=== PATIENT | female | born 1945 | race Caucasian/White ===

== ENCOUNTER → 2017-08-15 | Outpatient (CLI) | payer MEDICARE, BC, OTHER | LOC: M.CT 11:11 | DX: R91.1 Solitary pulmonary nodule (principal) ==

== ENCOUNTER 2018-12-10 07:21 | Emergency (ER) | payer MEDICARE, BC, OTHER ==
[~2018-12-10] VITALS: Ht 167.6 cm; Wt 61.2 kg
[2018-12-10] MEDS ORDERED: CHOLESTEROL (07:36)
[2018-12-10] MEDS ORDERED: FLEXERIL PO (07:50)
[2018-12-10] MEDS ORDERED: NORCO 5-325 TA1 EAC1 PO (07:50)
[2018-12-10 08:09] VITALS: BP 136/81
== END 2018-12-10 08:10 | disposition home or self-care (01) ==
LOC: M.ERS 07:21
DX: M43.6 Torticollis (principal)

== ENCOUNTER → 2018-12-18 | Outpatient (CLI) | payer MEDICARE, BC, OTHER ==
[~2018-12-18] MED LIST: CHOLESTEROL; FLEXERIL PO; NORCO 5-325 TA1 EAC1 PO
== END ==
LOC: M.MRI 08:30
DX: M47.812 Spondylosis without myelopathy or radiculopathy, cervical region (principal); M50.80 Other cervical disc disorders, unspecified cervical region; M48.02 Spinal stenosis, cervical region; M48.03 Spinal stenosis, cervicothoracic region

== ENCOUNTER → 2019-01-29 | Outpatient (CLI) | payer MEDICARE, BC, OTHER ==
[~2019-01-29] MED LIST changes: +ASA81BEC PO; +ATIVAN1 M1 PO; +CALCIUM CARBON600 MG PO; +COENZYME Q10100 MG PO; +ELIQUIS5 MG PO; +FLONASE 0.05%50 MCG NARES; +FOLVITE PO; +LIPITOR20 MG PO; +MELOXICAM15 MG PO; +MIRALAX119 GM PO; +MULTI-VITAMIN1 EAC5 PO; +OMEGA 3 1,0001 EACH PO; +PACERONE 200 M200 M1 PO; +VITAMIN D31000 UNIT PO; +ZANAFLEX2 M1 PO; +ZYRTEC10 M5 PO
== END ==
LOC: M.PC 04:54
DX: M47.812 Spondylosis without myelopathy or radiculopathy, cervical region (principal); M48.02 Spinal stenosis, cervical region; M50.321 Other cervical disc degeneration at C4-C5 level

== ENCOUNTER → 2019-02-05 | Outpatient (CLI) | payer MEDICARE, BC, OTHER | END | disposition home or self-care (01) | LOC: M.PC 01:12 | DX: M54.2 Cervicalgia (principal); M54.12 Radiculopathy, cervical region; I48.91 Unspecified atrial fibrillation; Z98.890 Other specified postprocedural states; Z79.01 Long term (current) use of anticoagulants; Z79.899 Other long term (current) drug therapy ==

== ENCOUNTER 2019-02-06 17:50 | Inpatient (IN) | payer MEDICARE, BC, OTHER ==
[~2019-02-06] VITALS: Ht 160 cm; Wt 50.8 kg
[~2019-02-06 17:50] MED LIST changes: -ELIQUIS5 MG PO; -PACERONE 200 M200 M1 PO
[2019-02-06 17:56] VITALS: BP 157/106
[2019-02-06 18:18] LABS: HEMATOCRIT 45.6 % (37.0-47.0); HEMOGLOBIN 15.7 gm/dL (12.0-15.0); MCH 31.8 pg (26.0-34.0); MCHC 34.4 g/dL (28.0-37.0); MCV 92.6 fL (80.0-100.0); MPV 8.3 fl. (7.2-11.1); NUCLEATED RBCS 0 /100WBC; PLATELET COUNT* 307 thou/uL (150-400); RBC 4.92 mil/uL (4.20-5.00); RDW-CV 13.7 % (10.5-14.5); WBC 15.3 thou/uL (4.0-11.0)
[2019-02-06 18:29] LABS: CALCIUM 9.8 mg/dL (8.5-10.1); CREATININE 1.1 mg/dL (0.6-1.3); POTASSIUM 3.8 mmol/L (3.5-5.1)
[2019-02-06 18:30] LABS: PROTIME 10.4 Seconds (9.20-11.50)
[2019-02-06 18:41] LABS: ALBUMIN 4.3 g/dL (3.4-5.0); MAGNESIUM 2.3 mg/dL (1.8-2.4); TOTAL BILIRUBIN 0.7 mg/dL (<0.1-1.0); TOTAL PROTEIN 8.1 g/dL (6.4-8.2)
[2019-02-06 18:48] LABS: ABSOLUTE LYMPHOCYTES 2.4 thou/uL (0.8-5.3); ABSOLUTE MONOCYTES 1.5 thou/uL (0.0-1.2); ABSOLUTE NEUTROPHILS 11.3 thou/uL (1.6-8.1); PLATELET ESTIMATE ADEQUATE
--- NOTE | 2019-02-06 21:35 | NUR ---
HEART RATE DECREASED TO LOW 40'S. PT HAS CONVERTED TO SR. DR BERNABE NOTIFIED AND CARDIZEM DRIP STOPPED AT THIS TIME.
[2019-02-06 21:36] VITALS: BP 106/52
[2019-02-07] VITALS (8 sets, daily range): BP systolic 104–140; BP diastolic 51–79
--- NOTE | 2019-02-07 08:36 | NUR ---
PT ORIENTED TO ROOMAND UNIT. BED LOW AND LOCKED, SIDE RAILS UPX3 CALL LIGHT IN REACH. TELE APPLIED AND ALL DOCUMENTS SIGHNED. INFORMED CARDIOLOGY THAT PT IS IN ROOM 232. WILL CONTINUE TO ASSESS.
--- NOTE | 2019-02-07 12:32 | NUR ---
MET WITH PT TO DISCUSS HOME SITUATION/DC PLANNING. PT LIVES WITH SPOUSE. SHE IS INDEPENDENT AND ACTIVE. USES NO EQUIPMENT. HASN'T HAD HH OR BEEN TO SNF. PLANS TO RETURN HOME AT DC. DISCUSSED POC AND GAVE WRITTEN INFO ON AMIODARONE AND ELIQUIS PER REQUEST. WILL FOLLOW
--- NOTE | 2019-02-07 14:25 | EKG ---
[place] [address] ELECTROCARDIOGRAM REPORT Name: ALLAN BOYD Room: [address] ADM IN M.R.#: [id number] Admission: 02/06/19 Attend Phys: Arnold Taylor Discharge: Date of : 41 Report #: [id number] THIS REPORT FOR: //name// [facility] ED Test Date: 2019-02-06 Test Time: 17:54:10 Pat Name: ALLAN BOYD Department: Room: [facility] Gender: F Business Proposal Rep: TP : 1945 Requested By: Ludwig Woods Order Number: [id number] MD: Filipe Fernández Measurements Intervals [place] Rate: 137 P: TN: QRS: 71 QRSD: 127 T: -49 QT: 318 QTc: 480 Interpretive Statements Atrial fibrillation Right bundle branch block LVH by voltage ST depression, consider ischemia, diffuse lds Borderline prolonged QT interval Baseline wander in lead(s) V5 No previous ECG available for comparison Electronically Signed On 02-07-2019 14:25:05 CDT by Filipe Fernández [email or web address] <ELECTRONICALLY SIGNED> By: Filipe Fernández MD, FACC 02/07/19 1425 [id number] 1754 Filipe Fernández MD, FAC /EPI
--- NOTE | 2019-02-07 15:48 | CON ---
[address] [address] CONSULTATION Name: ALLAN BOYD Room: [address] IN M.R.#: [id number] Admission: 02/06/19 Attend Phys: Arnold Taylor Discharge: Date of : 41 Report #: [id number] THIS REPORT FOR: //name// CC: Arnold Mendiola DO DATE OF SERVICE: 02/07/2019 CARDIOLOGY CONSULTATION HISTORY OF PRESENT ILLNESS: The patient is a 73-year-old white female, who I was asked to see in the hospital today after she had an episode of atrial fibrillation. The patient states that earlier this year, she was having episodes where she would feel weak and feel occasional extra heartbeats. She went to see my partner, Dr. Merrill Hatch in October. She had a previous Holter monitor that showed short runs of SVT. She underwent a nuclear stress test in May that showed no evidence of ischemia. Dr. Hatch recommended an echocardiogram, which was performed in August that showed an ejection fraction of 60% with no significant valvular abnormalities. He recommended a Holter monitor that she wore in July. This showed episodes of supraventricular tachycardia at 150 beats per minute. There were occasional episodes of sinus bradycardia with PVCs. There were episodes that suggested possible atrial fibrillation. There were no prolonged pauses. The patient was not recommended medications at that time. She did undergo vascular screening last year that showed no carotid stenosis, no abdominal aneurysm and there was no evidence of ABIs. She was at home yesterday when she felt her heart beating fast. She went to see Dr. Bradley in the office. He performed an ECG and she was noted to be tachycardic. She was sent to the hospital and admitted. She converted to sinus bradycardia. I was asked to see her for further evaluation and treatment. She is not very active. Denies history of chest pain, shortness of breath, peripheral edema or syncope. PAST MEDICAL HISTORY: She has had previous resection of a basal cell carcinoma. She had previous bilateral mastectomy because of the gene factor BRCA2 mutation that was put her at risk for cancer. She has had bilateral oophorectomy. She has a history of high blood pressure in the past. She has a history of hyperlipidemia. No history of diabetes. She has a history of chronic neck and back pain. She has received an epidural in the past. She recently was placed on MOBIC. CURRENT MEDICATIONS: Include aspirin, Lipitor, and Flonase nasal spray. ALLERGIES: SHE HAS INTOLERANCE TO MOLDS. FAMILY HISTORY: Her mother [place] [address] CONSULTATION Name: BOYDALLANJUAN IRVING Room: [address] IN M.R.#: [id number] Admission: 02/06/19 Attend Phys: Arnold Taylor Discharge: Date of : 41 Report #: [id number] SOCIAL HISTORY: She is . She and her live in [place]. She does exercise on a regular basis. No smoking or alcohol abuse. REVIEW OF SYSTEMS: She has had no history of stroke, peptic ulcer disease, liver disease, kidney disease, chronic skin condition or psychiatric illness. PHYSICAL EXAMINATION: GENERAL: Revealed an elderly female lying in bed. She appeared in no distress. VITAL SIGNS: Blood pressure 120/60, pulse is 60. She is afebrile. HEENT: She is anicteric. Conjunctivae pink. Mucous membranes moist. NECK: Veins nondistended. No carotid bruits. Neck supple. CHEST: Clear to auscultation. CARDIOVASCULAR: Regular rate and rhythm without murmur. ABDOMEN: Soft. EXTREMITIES: Had no edema. Posterior tibial pulse 2+ bilaterally. SKIN: Warm and dry. NEUROLOGIC: Nonfocal. Her ECG yesterday showed atrial fibrillation with an increased ventricular response rate, right bundle branch block, the patient then converted to sinus rhythm and is now in a sinus bradycardia. LABORATORY DATA: She had lab work in the Emergency Room yesterday, sodium 139, BUN was 41, creatinine 1.1. Liver function studies were normal. Troponin 0.06. White blood cell count 15.3, hemoglobin 15.7. She had a portable chest x-ray in the Emergency Room yesterday that showed no acute abnormality. IMPRESSION AND RECOMMENDATIONS: 1. Paroxysmal atrial fibrillation. I would recommend antiarrhythmic therapy. Because of bradycardia, I would recommend amiodarone. I would recommend anticoagulation with Eliquis. 2. Chronic back and neck pain. The patient has received a recent epidural. 3. Previous removal of a basal cell carcinoma. 4. History of BRCA gene mutation positive and the patient has received bilateral mastectomy. 5. History of supraventricular tachycardia. <ELECTRONICALLY SIGNED> By: Filipe Fernández MD, FACC 02/07/19 1548 0942 [id number] Fernández MD, FACC /nt
[2019-02-08] VITALS: BP 128/72
--- NOTE | 2019-02-08 02:57 | NUR ---
ASSUMED CARE OF PT AT 1900. PT IS ALERT AND ORIENTED. VSS. PERRLA. NO COMPLAINTS OF PAIN. STEADY GAIT. PT IS IN SINUS RYTHM ON THE TELEMETRY. PT IS RESTING COMFORTABLY IN BED. RESPIRATIONS ARE EVEN AND NONLABORED. WILL CONTINUE TO MONITOR PT.
[2019-02-08 04:00] VITALS: BP 141/81
[2019-02-08 09:05] VITALS: BP 133/78
--- NOTE | 2019-02-08 09:15 | NUR ---
ASSUMED CARE AFTER REPORT APPROX 07. A&OX4, ABLE TO COMMUNICATE NEEDS TO STAFF. VS OBTAINED, WNL. O2 SATS >92%. 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 UP AD TAYLA IN ROOM. NO C/O PAIN, N/V, SOA OR OTHER DISTRESS. CALL LIGHT IN REACH.
--- NOTE | 2019-02-08 11:26 | EKG ---
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: : 1945 Requested By: Filipe Fernández Order Number: [id number] Sangeeta MD: Leon Abbott Measurements Intervals [place] Rate: 49 P: 72 OR: 161 QRS: 80 QRSD: 149 T: 40 QT: 499 QTc: 451 Interpretive Statements Sinus bradycardia Right bundle branch block Compared to ECG 02/06/2019 17:54:10 Atrial fibrillation no longer present Left ventricular hypertrophy no longer present ST (T wave) deviation no longer present Possible ischemia no longer present Electronically Signed On 02-08-2019 11:26:37 CDT by Leon Abbott [email or web address] <ELECTRONICALLY SIGNED> By: Leon Abbott MD, FACC 02/08/19 1126 [id number] [id number] Leon Abbott MD, FAC /EPI
[2019-02-08 11:38] VITALS: BP 133/66
[2019-02-08 16:23] VITALS: BP 122/66
[2019-02-08 20:00] VITALS: BP 136/54
[2019-02-09] VITALS: BP 134/70
[2019-02-09 04:00] VITALS: BP 127/61
--- NOTE | 2019-02-09 04:58 | NUR ---
ASSUMED PT CARE AT APPROX 1930. PT IS AWAKE AND ORIENTED X4. VSS ON ROOM AIR. 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 ASSESSMENT DONE AND CHARTED. PT DENIES PAIN OF THIS TIME. PT IS ABLE TO SLEEP MOST OF THE NIGHT. CALL LIGHT WITHIN REACH. HOURLY ROUNDING DONE FOR PT SAFETY.
[2019-02-09 08:15] VITALS: BP 126/70
[2019-02-09] MEDS ORDERED: PACERONE 200 M200 M1 PO (10:25)
[2019-02-09] MEDS ORDERED: ELIQUIS5 MG PO (10:25)
[2019-02-09 10:27] VITALS: BP 126/70
[2019-02-09 12:00] VITALS: BP 147/54
--- NOTE | 2019-02-09 14:37 | EKG ---
[place] [address] ELECTROCARDIOGRAM REPORT Name: ALLAN BOYD Room: [address] DIS IN M.R.#: [id number] Admission: 02/06/19 Attend Phys: Arnold Taylor Discharge: 02/09/19 Date of : 41 Report #: [id number] THIS REPORT FOR: //name// 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: : 1945 Requested By: Filipe Fernández Order Number: [id number] Sangeeta MD: Merrill Hatch Measurements Intervals [place] Rate: 50 P: 69 MS: 170 QRS: 83 QRSD: 135 T: 16 QT: 484 QTc: 442 Interpretive Statements Sinus rhythm Right bundle branch block LVH by voltage Compared to ECG 02/08/2019 08:42:48 Left ventricular hypertrophy now present Sinus bradycardia no longer present Electronically Signed On 02-09-2019 14:36:52 CDT by Merrill Hatch [email or web address] <ELECTRONICALLY SIGNED> By: Merrill Hatch MD, [facility] 02/09/19 1436 0 Merrill Hatch MD, [facility] /EPI
== END 2019-02-09 11:15 | disposition home or self-care (01) | DRG 309 ==
LOC: M.ERS 17:50 → M.2W 18:26 → M.TBA-ER 18:26 → M.2W 02-07 08:31
PROVIDERS: Emergency Medicine; ADMIT Family Medicine
PROC: 5A2204Z Restoration of Cardiac Rhythm, Single (ICD-10-PCS; principal; 2019-02-07)
DX: I48.0 Paroxysmal atrial fibrillation (principal); D68.69 Other thrombophilia; E78.5 Hyperlipidemia, unspecified; G89.29 Other chronic pain; M54.2 Cervicalgia; M54.9 Dorsalgia, unspecified; K59.00 Constipation, unspecified; F41.9 Anxiety disorder, unspecified; Z79.82 Long term (current) use of aspirin; Z90.711 Acquired absence of uterus with remaining cervical stump; Z90.13 Acquired absence of bilateral breasts and nipples; Z79.899 Other long term (current) drug therapy

== ENCOUNTER → 2019-03-20 | Outpatient (CLI) | payer MEDICARE, BC, OTHER ==
[~2019-03-20] MED LIST changes: +ELIQUIS5 MG PO; +PACERONE 200 M200 M1 PO
== END ==
LOC: M.RAD 03-14 12:09
DX: M81.0 Age-related osteoporosis without current pathological fracture (principal); I67.82 Cerebral ischemia

== ENCOUNTER → 2019-05-03 | Outpatient (CLI) | payer MEDICARE, BC, OTHER ==
[2019-05-03 07:21] LABS: CREATININE 1.1 mg/dL (0.6-1.3)
== END ==
LOC: M.LAB 06:53 → M.CT 08:00
DX: J98.11 Atelectasis (principal); J84.10 Pulmonary fibrosis, unspecified; K76.89 Other specified diseases of liver; M43.16 Spondylolisthesis, lumbar region; M51.36 Other intervertebral disc degeneration, lumbar region; M12.88 Other specific arthropathies, not elsewhere classified, other specified site; Z15.01 Genetic susceptibility to malignant neoplasm of breast; Z90.13 Acquired absence of bilateral breasts and nipples; Z15.09 Genetic susceptibility to other malignant neoplasm

== ENCOUNTER → 2021-02-09 | Outpatient (CLI) | payer MEDICARE, BC | LOC: M.RAD 09:27 | DX: M85.88 Other specified disorders of bone density and structure, other site (principal); M81.0 Age-related osteoporosis without current pathological fracture ==